=== PATIENT | female | born 1950 | race Caucasian/White ===

== ENCOUNTER 2017-09-17 05:22 | Inpatient (IN) | payer BC ==
[2017-09-17] MEDS: DEXAMETHASONE 1 MG TAB PO (05:49)
[2017-09-17] MEDS: GABAPENTIN 300 MG CAP PO ×2 (05:49→20:41)
[2017-09-17] MEDS: traMADol 50 MG TAB PO (05:50)
[2017-09-17] MEDS: CEFAZOLIN 2 GM/50 ML (PMX) 50 ML IVPB (06:30)
[2017-09-17] MEDS ORDERED: BUPIVACAINE 0.5% (SDV) 30 ML, morphine SULFATE (PF) 8 MG, EPINEPHrine 0.3 MG, KETOROLAC... IRR (06:30)
[2017-09-17] MEDS ORDERED: ROPIVACAINE 0.5 % 30 ML VIAL (06:33)
[2017-09-17] MEDS ORDERED: MIDAZOLAM 1 MG/ML 2 ML INJ (06:55)
[2017-09-17] MEDS ORDERED: ROCURONIUM 50 MG INJ (07:00)
[2017-09-17] MEDS ORDERED: METOCLOPRAMIDE 10 MG INJ IV (07:00)
[2017-09-17] MEDS ORDERED: HYDROmorphONE (0.2 MG/ML) 10ML SYG IV ×2 (07:00)
[2017-09-17] MEDS ORDERED: LIDOCAINE 2% (SDV) 5 ML INJ (07:00)
[2017-09-17] MEDS ORDERED: KETOROLAC 30 MG INJ IV (07:00)
[2017-09-17] MEDS ORDERED: EPHEDrine SULFATE 50 MG/5 ML SYG IV (07:00)
[2017-09-17] MEDS ORDERED: FENTAnyl 50 MCG/ML VIAL IV ×2 (07:00)
[2017-09-17] MEDS ORDERED: CEFAZOLIN 1 GM INJ (07:00)
[2017-09-17] MEDS ORDERED: ONDANSETRON 4 MG INJ IV ×2 (07:00→11:00)
[2017-09-17] MEDS ORDERED: LABETALOL HCL 20MG INJ IV (07:00)
[2017-09-17] MEDS ORDERED: PROPOFOL 200 MG INJ (07:00)
[2017-09-17] MEDS ORDERED: ALBUTEROL 0.083% (NEB) 2.5 MG/3 ML AMP HHN (07:00)
[2017-09-17] MEDS ORDERED: OXYCODONE/ACETAMINOPHEN (5/325) TAB PO ×3 (07:00→11:00)
[2017-09-17] MEDS ORDERED: DIPHENHYDRAMINE 50 MG INJ IV ×2 (07:00→11:00)
[2017-09-17] MEDS ORDERED: LABETALOL HCL 20MG INJ (07:19)
[2017-09-17] MEDS: TRANEXAMIC ACID 1,000 MG in DEXTROSE 5% 100 ML IVPB (07:30)
[2017-09-17] MEDS ORDERED: DEXAMETHASONE 4 MG/ML 1 ML INJ (07:36)
[2017-09-17] MEDS ORDERED: ONDANSETRON 4 MG INJ (07:36)
[2017-09-17] MEDS ORDERED: KETOROLAC 30 MG INJ (08:13)
[2017-09-17] MEDS ORDERED: SUGAMMADEX SODIUM 200 MG/2 ML VIAL IV (08:17)
[2017-09-17] MEDS: CA CHLORIDE 10% 10 ML SYRINGE (08:19)
[2017-09-17] MEDS: THROMBIN 5000 UNIT VIAL (08:20)
[2017-09-17] MEDS: POLYMYXIN/BACITRACIN 1L IRRIG (08:21)
[2017-09-17] MEDS: FENTAnyl 50 MCG/ML VIAL IV (09:14)
[2017-09-17] MEDS: HYDROmorphONE (0.2 MG/ML) 10ML SYG IV (09:15)
[2017-09-17] MEDS: MEPERIDINE 25 MG INJ IV (09:15)
[2017-09-17] MEDS: hydrALAzine 20 MG INJ IV (09:56)
[2017-09-17] MEDS: MIDAZOLAM 1 MG/ML 2 ML INJ IV (10:11)
[2017-09-17] MEDS ORDERED: MAGNESIUM HYDROXIDE 30ML CUP PO (11:00)
[2017-09-17] MEDS ORDERED: morphine 4 MG/ML VIAL IV (11:00)
[2017-09-17] MEDS ORDERED: ZOLPIDEM 5 MG TAB PO (11:00)
[2017-09-17] MEDS ORDERED: ACETAMINOPHEN 500 MG TAB PO (11:00)
[2017-09-17] MEDS: morphine 2 MG INJ IV ×2 (11:37→18:23)
[2017-09-17] MEDS: TRANEXAMIC ACID 1,000 MG in DEXTROSE 5% 100 ML IV (12:55)
[2017-09-17] MEDS: CEFAZOLIN 1 GM/50 ML (PMX) 50 ML IVPB ×2 (12:55→18:23)
[2017-09-17] MEDS: DEXAMETHASONE 2 MG TAB PO ×3 (12:55→23:45)
[2017-09-17] MEDS: KETOROLAC 15 MG INJ IV ×2 (12:55→20:45)
[2017-09-17] MEDS: SENNA/DOCUSATE NA (8.6MG/50MG) TAB PO (20:41)
[2017-09-18] MEDS: CEFAZOLIN 1 GM/50 ML (PMX) 50 ML IVPB (02:35)
[2017-09-18] MEDS: DEXAMETHASONE 2 MG TAB PO (05:51)
[2017-09-18] MEDS: KETOROLAC 15 MG INJ IV (05:52)
[2017-09-18] MEDS: OXYCODONE/ACETAMINOPHEN (5/325) TAB PO (09:46)
[2017-09-18] MEDS: PANTOPRAZOLE (EC) 40 MG TAB PO (09:46)
[2017-09-18] MEDS: PAROXETINE 10 MG TAB PO (09:47)
[2017-09-18] MEDS: ASPIRIN 81 MG TAB PO (09:47)
[2017-09-18] MEDS: LORATADINE/PSEUDOEPHED (SR) TAB PO (09:47)
[2017-09-18] MEDS: SENNA/DOCUSATE NA (8.6MG/50MG) TAB PO (09:47)
[2017-09-18] MEDS: ALBUTEROL HFA 8 GM INHALER INH (09:51)
[2017-09-19] MEDS ORDERED: NON-FORMULARY/PATIENT OWN MED (Linaclotide (Linzess) 145 MCG) XX (09:00)
== END 2017-09-18 13:00 | disposition home or self-care (01) | DRG 483 ==
LOC: REC 05:22 → MS1 10:47
PROC: 0RRJ00Z Replacement of Right Shoulder Joint with Reverse Ball and Socket Synthetic Substitute, Open Approach (ICD-10-PCS; principal; 2017-09-17 07:00)
PROC: 0LS30ZZ Reposition Right Upper Arm Tendon, Open Approach (ICD-10-PCS; 2017-09-17 07:00)
PROC: 0PB90ZZ Excision of Right Clavicle, Open Approach (ICD-10-PCS; 2017-09-17 07:00)
DX: M19.211 Secondary osteoarthritis, right shoulder (principal); M19.011 Primary osteoarthritis, right shoulder; S46.011A Strain of muscle(s) and tendon(s) of the rotator cuff of right shoulder, initial encounter; S46.211A Strain of muscle, fascia and tendon of other parts of biceps, right arm, initial encounter
CPT/HCPCS: 73030-RT; 86999; 97110; 97165; 97535

== ENCOUNTER 2018-06-24 10:23 | Inpatient (IN) | payer BC, MEDICARE ==
[2018-06-23] MEDS: CEFAZOLIN 2 GM/50 ML (PMX) 50 ML IVPB (06:00)
[2018-06-23] MEDS: TRANEXAMIC ACID 1,000 MG in DEXTROSE 5% 100 ML IVPB (06:00)
[2018-06-24] MEDS: GABAPENTIN 300 MG CAP PO ×3 (08:30→20:29)
[~2018-06-24 10:23] MED LIST: BUPIVACAINE 0.5% (SDV) 30 ML, morphine SULFATE (PF) 8 MG, EPINEPHrine 0.3 MG, KETOROLAC... IRR
[2018-06-24] MEDS ORDERED: FENTAnyl 50 MCG/ML VIAL (10:51)
[2018-06-24] MEDS ORDERED: CEFAZOLIN 1 GM INJ (10:51)
[2018-06-24] MEDS ORDERED: MIDAZOLAM 1 MG/ML 2 ML INJ (10:51)
[2018-06-24] MEDS ORDERED: ROCURONIUM 50 MG INJ (10:51)
[2018-06-24] MEDS ORDERED: ONDANSETRON 4 MG INJ (10:51)
[2018-06-24] MEDS ORDERED: NEOSTIGMINE 3 MG/3 ML SYRINGE (10:51)
[2018-06-24] MEDS ORDERED: ROPIVACAINE 0.5 % 30 ML VIAL (10:51)
[2018-06-24] MEDS ORDERED: GLYCOPYRROLATE 0.4 MG INJ (10:51)
[2018-06-24] MEDS ORDERED: PROPOFOL 20 ML (10:51)
[2018-06-24] MEDS ORDERED: DEXAMETHASONE 4 MG/ML 1 ML INJ (10:51)
[2018-06-24] MEDS: DEXAMETHASONE 1 MG TAB PO ×2 (11:20→12:00)
[2018-06-24] MEDS: traMADol 50 MG TAB PO ×2 (11:20→12:00)
[2018-06-24] MEDS: THROMBIN 5000 UNIT VIAL (11:54)
[2018-06-24] MEDS: CA CHLORIDE 10% 10 ML SYRINGE (11:54)
[2018-06-24] MEDS ORDERED: BUPIVACAINE 0.5%/EPI (SDV) 30 ML INJ (11:54)
[2018-06-24] MEDS: POLYMYXIN/BACITRACIN 1L IRRIG (11:55)
[2018-06-24] MEDS: BUPIVACAINE 0.5% (SDV) 30 ML, morphine SULFATE (PF) 8 MG, EPINEPHrine 0.3 MG, KETOROLAC... IRR (12:00)
[2018-06-24] MEDS: CEFAZOLIN 2 GM/50 ML (PMX) 50 ML IVPB (12:00)
[2018-06-24] MEDS: TRANEXAMIC ACID 1,000 MG in DEXTROSE 5% 100 ML IVPB (12:00)
[2018-06-24] MEDS ORDERED: IPRATROPIUM (NEB) 0.5 MG/2.5 ML AMP HHN (12:30)
[2018-06-24] MEDS ORDERED: MEPERIDINE 25 MG INJ IV (12:30)
[2018-06-24] MEDS ORDERED: ONDANSETRON 4 MG INJ IV ×2 (12:30→13:30)
[2018-06-24] MEDS ORDERED: hydrALAzine 20 MG INJ IV (12:30)
[2018-06-24] MEDS ORDERED: MIDAZOLAM 1 MG/ML 2 ML INJ IV (12:30)
[2018-06-24] MEDS ORDERED: DIPHENHYDRAMINE 50 MG INJ IV ×2 (12:30→13:30)
[2018-06-24] MEDS ORDERED: HYDROmorphONE 1 MG/5 ML IV SYRINGE IV ×3 (12:30)
[2018-06-24] MEDS ORDERED: TRIMETHOBENZAMIDE 100 MG/ML VIAL IM (12:30)
[2018-06-24] MEDS ORDERED: OXYCODONE/ACETAMINOPHEN (5/325) TAB PO ×2 (12:30)
[2018-06-24] MEDS ORDERED: LABETALOL HCL 20MG INJ IV (12:30)
[2018-06-24] MEDS ORDERED: EPHEDrine SULFATE 50 MG/5 ML SYG IV (12:30)
[2018-06-24] MEDS ORDERED: FENTAnyl 50 MCG/ML VIAL IV ×3 (12:30)
[2018-06-24] MEDS ORDERED: ALBUTEROL 0.083% (NEB) 2.5 MG/3 ML AMP HHN (12:30)
[2018-06-24] MEDS ORDERED: SUGAMMADEX SODIUM 200 MG/2 ML VIAL IV (12:30)
[2018-06-24] MEDS ORDERED: morphine 2 MG INJ IV (13:30)
[2018-06-24] MEDS ORDERED: ACETAMINOPHEN 500 MG TAB PO (13:30)
[2018-06-24] MEDS ORDERED: CEFAZOLIN 1 GM/50 ML (PMX) 50 ML IVPB (13:30)
[2018-06-24] MEDS ORDERED: MAGNESIUM HYDROXIDE 30ML CUP PO (13:30)
[2018-06-24] MEDS ORDERED: ZOLPIDEM 5 MG TAB PO (13:30)
[2018-06-24] MEDS ORDERED: METOCLOPRAMIDE 10 MG INJ (13:33)
[2018-06-24] MEDS: TRANEXAMIC ACID 1,000 MG in DEXTROSE 5% 100 ML IV (14:08)
[2018-06-24] MEDS: DEXAMETHASONE 2 MG TAB PO ×2 (18:28→23:53)
[2018-06-24] MEDS: CEFAZOLIN 1 GM/50 ML (PMX) 50 ML IVPB (20:29)
[2018-06-24] MEDS: MONTELUKAST 10 MG TAB PO (20:29)
[2018-06-24] MEDS: SENNA/DOCUSATE NA (8.6MG/50MG) TAB PO (20:29)
[2018-06-24] MEDS: morphine 2 MG INJ IV (23:52)
[2018-06-25] MEDS: OXYCODONE/ACETAMINOPHEN (5/325) TAB PO ×2 (01:14→08:53)
[2018-06-25] MEDS: KETOROLAC 15 MG INJ IV ×2 (04:07→10:51)
[2018-06-25] MEDS: CEFAZOLIN 1 GM/50 ML (PMX) 50 ML IVPB (04:12)
[2018-06-25] MEDS: DEXAMETHASONE 2 MG TAB PO (05:34)
[2018-06-25] MEDS: ASPIRIN 81 MG TAB PO (08:53)
[2018-06-25] MEDS: SENNA/DOCUSATE NA (8.6MG/50MG) TAB PO (08:53)
== END 2018-06-25 14:31 | disposition home or self-care (01) | DRG 483 ==
LOC: REC 10:23 → MS1 16:10
PROC: 0RRK00Z Replacement of Left Shoulder Joint with Reverse Ball and Socket Synthetic Substitute, Open Approach (ICD-10-PCS; principal; 2018-06-24 12:00)
DX: M19.212 Secondary osteoarthritis, left shoulder (principal); M75.102 Unspecified rotator cuff tear or rupture of left shoulder, not specified as traumatic; I10 Essential (primary) hypertension; E78.5 Hyperlipidemia, unspecified; J45.909 Unspecified asthma, uncomplicated; E66.9 Obesity, unspecified
CPT/HCPCS: 73030; 86999; 88304; 88311; 97166